=== PATIENT | male | born 1960 | race African-American/Black ===

== ENCOUNTER 2017-11-22 13:42 | Inpatient (IN) | payer OTHER ==
[2017-11-22 15:08] VITALS: BMI 21.9
--- NOTE | 2017-11-22 15:23 | HP ---
CIWA Score - CIWA Score Nausea/Vomitin-Mild Nausea/No Vomiting Muscle Tremors: 4-Moderate,w/Arms Extend Anxiety: 4-Mod. Anxious/Guarded Agitation: 4-Moderately Restless Paroxysmal Sweats: 1-Minimal Palms Moist Orientation: 1-Uncertain about Date Tacttile Disturbances: 1-Very Mild Itch/Numbness Auditory Disturbances: 0-None Visual Disturbances: 0-None Headache: 2-Mild CIWA-Ar Total Score: 18 Admission ROS S - HPI Chief Complaint: withdrawal sx Allergies/Adverse Reactions: Allergies Allergy/AdvReac Type Severity Reaction Status Date / Time No Known Allergies Allergy Verified 11/22/17 15:13 History of Present Illness: 57 years old male with long history of alcohol nicotine dependence has positive ppd hypertension prostate ca x 2 years is admitted to detox has depression Exam Limitations: No Limitations - Ebola screening Have you traveled outside of the country in the last 21 days: No (N) Have you had contact with anyone from an Ebola affected area: No Have you been sick,other than usual withdrawal symptoms: No Do you have a fever: No - Review of Systems Constitutional: Loss of Appetite, Changes in sleep, Unintentional Wgt. Loss, Unexplained wgt Loss EENT: reports: Blurred Vision (eye glasses), Hearing Loss (both ears x "years") Respiratory: reports: Productive cough (brownish) Cardiac: reports: No Symptoms Reported GI: reports: Nausea, Poor Appetite, Poor Fluid Intake, Abdominal cramping : reports: Other (prostate ca) Musculoskeletal: reports: Muscle Weakness (both legs) Integumentary: reports: No Symptoms Reported Neuro: reports: Seizure (2016 head trauma), Tremors Endocrine: reports: No Symptoms Reported Hematology: reports: No Symptoms Reported Psychiatric: reports: Judgement Intact, Orientated x3, Anxious, Depressed Other Systems: Reviewed and Negative Patient History - Patient Medical History Hx Anemia: No Hx Asthma: No Hx Chronic Obstructive Pulmonary Disease (COPD): No Hx Cancer: No Hx Cardiac Disorders: No Hx Congestive Heart Failure: No Hx Hypertension: Yes Hx Hypercholesterolemia: No Hx Pacemaker: No HX Cerebrovascular Accident: No Hx Seizures: Yes Hx Dementia: No Hx Diabetes: No Hx Gastrointestinal Disorders: No Hx Liver Disease: No Hx Genitourinary Disorders: No Hx Sexually Transmitted Disorders: No Hx Renal Disease (ESRD): No Hx Thyroid Disease: No Hx Human Immunodeficiency Virus (HIV): No Hx Hepatitis C: No Hx Depression: Yes Hx Suicide Attempt: No Hx Bipolar Disorder: No Hx Schizophrenia: No - Patient Surgical History Past Surgical History: Yes Hx Genitourinary Surgery: Yes (prostate removed 2015) Hx Orthopedic Surgery: Yes (shoulders 2015) Anesthesia Reaction: No - PPD History Previous Implant?: Yes Documented Results: Positive w/proof Implanted On Prior R Admission?: No PPD to be Administered?: No - Smoking Cessation Smoking history: Current every day smoker Have you smoked in the past 12 months: Yes Aproximately how many cigarettes per day: 10 Cigars Per Day: 0 Hx Chewing Tobacco Use: No Initiated information on smoking cessation: Yes 'Breaking Loose' booklet given: 11/22/17 - Substance & Tx. History Hx Alcohol Use: Yes Hx Substance Use: No Substance Use Type: Alcohol Hx Substance Use Treatment: Yes () - Substances Abused Alcohol Route: Oral Frequency: Daily Amount used: pint vodka Age of first use: 16 Date of Last Use: 11/22/17 Family Disease History - Family Disease History Family Disease History: CA: Brother (), Respiratory: Mother (), Other: Father (), Mother, Brother, Sister (no contact) Admission Physical Exam BHS - Vital Signs Vital Signs: Vital Signs - 24 hr 11/22/17 15:00 Temperature 96.6 F L Pulse Rate 77 Respiratory 20 Rate Blood Pressure 141/97 - Physical General Appearance: Yes: Appropriately Dressed, Mild Distress, Alcohol on Breath , Thin, Tremorous, Irritable, Sweating, Anxious HEENTM: Yes: Hearing grossly Normal, Normal ENT Inspection, Normocephalic, Normal Voice Respiratory: Yes: Chest Non-Tender, Lungs Clear, Normal Breath Sounds, No Respiratory Distress, No Accessory Muscle Use Neck: Yes: Supple, Trachea in good position Breast: Yes: Breasts Symetrical Cardiology: Yes: Regular Rhythm, Regular Rate, S1, S2 Abdominal: Yes: Normal Bowel Sounds, Non Tender, Flat Genitourinary: Yes: Within Normal Limits Back: Yes: Normal Inspection Musculoskeletal: Yes: Gait Steady (cane), Muscle weakness (both legs) Extremities: Yes: Normal Inspection, Non-Tender, Tremors Neurological: Yes: Alert, Normal Response, Depressed Affect (tearful) Integumentary: Yes: Warm Lymphatic: Yes: Within Normal Limits - Diagnostic (1) Alcohol dependence with uncomplicated withdrawal Current Visit: Yes Status: Acute (2) Positive PPD, treated Current Visit: Yes Status: Resolved (3) Nicotine dependence Current Visit: Yes Status: Acute Qualifiers: Nicotine product type: cigarettes Substance use status: in withdrawal Qualified Code(s): F17.213 - Nicotine dependence, cigarettes, with withdrawal (4) Prostate CA Current Visit: Yes Status: Inactive Comment: diagnosed 2016 surgically removed follow up with oncologist Cleared for Admission [facility] - Detox or Rehab [facility] Level of Care: Medically Managed Detox Regimen/Protocol: Librium [facility] Breath Alcohol Content Breath Alcohol Content: 0.218 Urine Drug Screen - Results Drug Screen Negative: Yes
[2017-11-22] MEDS ORDERED: NICOTINE POLACRILEX 2 MG GUM BC PRN (15:32)
[2017-11-22] MEDS ORDERED: MAGNESIUM HYDROX 2400MG/30ML ORAL SUSPENSION 30 ML CUP PO PRN (15:32)
[2017-11-22] MEDS ORDERED: MAG HYDROX/AL HYDROX/SIMETH 30 ML UNIT-DOSE CUP PO PRN (15:32)
[2017-11-22] MEDS ORDERED: IBUPROFEN 400 MG TABLET (FP) PO PRN (15:32)
[2017-11-22] MEDS ORDERED: ACETAMINOPHEN 325 MG TABLET (FP) PO PRN (15:32)
[2017-11-22] MEDS ORDERED: MAGNESIUM CITRATE 300 ML BOTTLE PO PRN (15:32)
[2017-11-22] MEDS ORDERED: guaiFENesin/D-METHORPHAN HB 10 ML UNIT-DOSE CUPS PO PRN (15:32)
[2017-11-22] MEDS ORDERED: P-EPHED 60MG/TRIPROLIDI 2.5MG TABLET PO PRN (15:32)
[2017-11-22] MEDS ORDERED: MENTHOL/PHENOL 1 EACH UD MM PRN (15:32)
[2017-11-22] MEDS ORDERED: LOPERAMIDE HCL 2 MG CAPSULE PO PRN (15:32)
[2017-11-22] MEDS: chlordiazePOXIDE HCL 25 MG CAPSULE PO PRN (18:22)
[2017-11-22] MEDS: THIAMINE HCL 100 MG TABLET (FP) PO SCH (22:11)
[2017-11-22] MEDS: chlordiazePOXIDE HCL 25 MG CAPSULE PO SCH (22:11)
[2017-11-22 23:09] LABS: URINE APPEARANCE TURBID; URINE BILIRUBIN NEGATIVE (NEGATIVE); URINE BLOOD NEGATIVE (NEGATIVE); URINE COLOR AMBER; URINE GLUCOSE (UA) NEGATIVE (NEGATIVE); URINE KETONE TRACE (NEGATIVE); URINE LEUK ESTERASE NEGATIVE (NEGATIVE); URINE NITRITE NEGATIVE (NEGATIVE); URINE UROBILINOGEN 4.0 E.U/dl mg/dL (0.2-1.0)
[2017-11-22 23:15] LABS: URINE PROTEIN 1+ (NEGATIVE)
[2017-11-22 23:24] LABS: URINE BACTERIA RARE /hpf (NONE SEEN); URINE MUCUS MANY
[2017-11-23] MEDS: chlordiazePOXIDE HCL 25 MG CAPSULE PO SCH ×4 (05:40→22:23)
[2017-11-23] MEDS: chlordiazePOXIDE HCL 25 MG CAPSULE PO PRN (08:47)
--- NOTE | 2017-11-23 09:53 | EKG ---
Test Reason : Blood Pressure : / mmHG Vent. Rate : 093 BPM Atrial Rate : 093 BPM P-R Int : 140 ms QRS Dur : 084 ms QT Int : 348 ms P-R-T Axes : 069 075 075 degrees QTc Int : 432 ms NORMAL SINUS RHYTHM NORMAL ECG NO PREVIOUS ECGS AVAILABLE Confirmed by BRETT OROSCO MD ([id number]) on 11/23/2017 9:53:28 AM Referred By: Confirmed By:BRETT OROSCO MD
[2017-11-23] MEDS: PRENATAL VITAMINS W/ FOLIC ACID TABLET (FP) PO SCH (10:26)
[2017-11-23] MEDS: NICOTINE 14 MG/24 HOURS TOPICAL PATCH TD SCH (10:28)
--- NOTE | 2017-11-23 10:36 | CONSULT ---
[facility] Psychiatric Consult - Data Date of interview: 11/23/17 Admission source: [facility] Identifying data: Pt is a 57 year old male, father of seven, unemployed, and currently waiting to be approved for disbility.This is patient's first admission to [facility]. Pt. admitted to for alcohol dependence. Substance Abuse History: Following information confirmed with Mr. Marlow: Smoking Cessation. Smoking history: Current every day smoker. Have you smoked in the past 12 months: Yes. Aproximately how many cigarettes per day: 10. Cigars Per Day: 0. Hx Chewing Tobacco Use: No. Initiated information on smoking cessation: Yes. 'Breaking Loose' booklet given: 11/22/17. - Substance & Tx. History. Hx Alcohol Use: Yes. Hx Substance Use: No. Substance Use Type : Alcohol. Hx Substance Use Treatment: Yes (). - Substances Abused. Alcohol. Route: Oral. Frequency: Daily. Amount used: pint vodka. Age of first use: 16. Date of Last Use: 11/22/17 Medical History: Hypertension, seizures. Psychiatric History: Pt. denies h/o psychiatric hospitalizations, OPC, and suicide attempts. Pt. reports anxiety and depression within the last year. Pt. not interested in accepting medications. Pt. reports h/o one incomplete suicide attempt. States at the age of 11 he took a knife with the thought of stabbing himself but stated to proposal manager writer, " I could not do it." Pt. currently denies suicidal and homicidal ideation. Physical/Sexual Abuse/Trauma History: Denies. Mental Status Exam - Mental Status Exam Alert and Oriented to: Time, Place, Person Cognitive Function: Fair Patient Appearance: Well Groomed Mood: Euthymic Affect: Mood Congruent Patient Behavior: Cooperative Speech Pattern: Appropriate Voice Loudness: Normal Thought Process: Goal Oriented Thought Disorder: Not Present Hallucinations: Denies Suicidal Ideation: Denies Homicidal Ideation: Denies Insight/Judgement: Poor Sleep: Fair Appetite: Good Muscle strength/Tone: Mild Hypertonicity Gait/Station: Other (Pt. ambulates with a cane.) Psychiatric Findings - Problem List ([place] 1, 2,3) (1) Alcohol dependence with uncomplicated withdrawal Current Visit: Yes Status: Acute (2) Nicotine dependence Current Visit: Yes Status: Chronic Qualifiers: Nicotine product type: cigarettes Substance use status: in withdrawal Qualified Code(s): F17.213 - Nicotine dependence, cigarettes, with withdrawal (3) Substance induced mood disorder Current Visit: No Status: Suspected - Initial Treatment Plan Initial Treatment Plan: Psychoeducation provided. Detoxification in progress. Observation.
--- NOTE | 2017-11-23 10:44 | CONSULT ---
[facility] Psychiatric Consult - Data Date of interview: 11/23/17 Admission source: [facility] Psychiatric Findings - Problem List ([place] 1, 2,3) (1) Alcohol dependence with uncomplicated withdrawal Current Visit: Yes Status: Acute (2) Nicotine dependence Current Visit: Yes Status: Chronic Qualifiers: Nicotine product type: cigarettes Substance use status: in withdrawal Qualified Code(s): F17.213 - Nicotine dependence, cigarettes, with withdrawal (3) Substance induced mood disorder Current Visit: No Status: Suspected
--- NOTE | 2017-11-23 11:54 | PN ---
[facility] CIWA - CIWA Score Nausea/Vomitin-No Nausea/No Vomiting Muscle Tremors: 4-Moderate,w/Arms Extend Anxiety: 4-Mod. Anxious/Guarded Agitation: 3 Paroxysmal Sweats: 3 Orientation: 0-Oriented Tacttile Disturbances: 0-None Auditory Disturbances: 0-None Visual Disturbances: 0-None Headache: 0-None Present CIWA-Ar Total Score: 14 S Progress Note (SOAP) Subjective: Anxiety,tremors,sweating,interrupted sleep,restless Objective: 11/23/17 11:52 Vital Signs - 8 hr 11/23/17 11/23/17 11/23/17 06:30 07:37 09:36 Temperature 97.9 F 98.8 F Pulse Rate 71 71 73 Respiratory 19 20 Rate Blood Pressure 146/82 155/98 Laboratory Tests 11/22/17 18:55 Urine Color Lou Urine Appearance Turbid Urine pH 5.0 Ur Specific [place] 1.025 Urine Protein 1+ H Urine Glucose (UA) Negative Urine Ketones Trace H Urine Blood Negative Urine Nitrite Negative Urine Bilirubin Negative Urine Urobilinogen 4.0 e.u/dl Ur Leukocyte Esterase Negative Urine WBC (Auto) 6 Urine RBC (Auto) None Urine Bacteria Rare Urine Mucus Many labs noted Assessment: 11/23/17 11:53 Withdrawal sx. Plan: Continue detox
[2017-11-23 12:07] LABS: HEMATOCRIT 46.5 % (35.4-49); HEMOGLOBIN 14.9 GM/dL (11.7-16.9); MCH 32.3 pg (25.7-33.7); MCHC 32.1 g/dl (32.0-35.9); MEAN CELL VOLUME 100.4 fl (80-96); MEAN PLT VOLUME 8.3 fl (7.5-11.1); PLATELET COUNT 291 K/MM3 (134-434); RBC 4.63 M/mm3 (4.00-5.60); WHITE BLOOD COUNT 5.4 K/mm3 (4.0-10.0)
[2017-11-23 12:11] LABS: ALBUMIN 4.1 g/dl (3.4-5.0); ALK PHOS 82 U/L (45-117); ANION GAP 11 (8-16); BILIRUBIN,TOTAL 0.3 mg/dL (0.2-1.0); BLOOD UREA NITROGEN 10 mg/dL (7-18); CALCIUM 9.1 mg/dL (8.5-10.1); CHLORIDE 103 mmol/L (98-107); CO2 27 mmol/L (21-32); GLUCOSE,RANDOM 143 mg/dL (74-106); POTASSIUM 4.2 mmol/L (3.5-5.1); SGOT/AST 67 U/L (15-37); SGPT/ALT 50 U/L (12-78); SODIUM 141 mmol/L (136-145); TOT PROT 7.1 g/dl (6.4-8.2)
[2017-11-23] MEDS: THIAMINE HCL 100 MG TABLET (FP) PO SCH (22:23)
[2017-11-24] MEDS: chlordiazePOXIDE HCL 25 MG CAPSULE PO SCH ×3 (05:51→17:11)
--- NOTE | 2017-11-24 10:16 | PN ---
S CIWA - CIWA Score Nausea/Vomitin-Mild Nausea/No Vomiting Muscle Tremors: 4-Moderate,w/Arms Extend Anxiety: 3 Agitation: 4-Moderately Restless Paroxysmal Sweats: 3 Orientation: 0-Oriented Tacttile Disturbances: 0-None Auditory Disturbances: 0-None Visual Disturbances: 0-None Headache: 0-None Present CIWA-Ar Total Score: 15 BHS Progress Note (SOAP) Subjective: Tremors,sweating,interrupted sleep,anxiety,restless. Objective: 11/24/17 10:15 Vital Signs - 8 hr 11/24/17 11/24/17 03:30 06:00 Temperature 97.7 F Pulse Rate 59 L Respiratory 17 18 Rate Blood Pressure 126/80 Laboratory Tests 11/22/17 11/23/17 11/23/17 18:55 05:45 05:45 WBC 5.4 RBC 4.63 Hgb 14.9 Hct 46.5 MCV 100.4 H MCH 32.3 MCHC 32.1 RDW 15.0 Plt Count 291 MPV 8.3 Sodium 141 Potassium 4.2 Chloride 103 Carbon Dioxide 27 Anion Gap 11 BUN 10 Creatinine 1.0 Creat Clearance w eGFR > 60 Random Glucose 143 H Calcium 9.1 Total Bilirubin 0.3 AST 67 H ALT 50 Alkaline Phosphatase 82 Total Protein 7.1 Albumin 4.1 Urine Color Lou Urine Appearance Turbid Urine pH 5.0 Ur Specific [place] 1.025 Urine Protein 1+ H Urine Glucose (UA) Negative Urine Ketones Trace H Urine Blood Negative Urine Nitrite Negative Urine Bilirubin Negative Urine Urobilinogen 4.0 e.u/dl Ur Leukocyte Esterase Negative Urine WBC (Auto) 6 Urine RBC (Auto) None Urine Bacteria Rare Urine Mucus Many RPR Titer 11/23/17 05:45 WBC RBC Hgb Hct MCV MCH MCHC RDW Plt Count MPV Sodium Potassium Chloride Carbon Dioxide Anion Gap BUN Creatinine Creat Clearance w eGFR Random Glucose Calcium Total Bilirubin AST ALT Alkaline Phosphatase Total Protein Albumin Urine Color Urine Appearance Urine pH Ur Specific [place] Urine Protein Urine Glucose (UA) Urine Ketones Urine Blood Urine Nitrite Urine Bilirubin Urine Urobilinogen Ur Leukocyte Esterase Urine WBC (Auto) Urine RBC (Auto) Urine Bacteria Urine Mucus RPR Titer Nonreactive labs noted Assessment: 11/24/17 10:15 Withdrawal sx. Plan: Continue detox
[2017-11-24] MEDS: NICOTINE 14 MG/24 HOURS TOPICAL PATCH TD SCH (10:27)
[2017-11-24] MEDS: PRENATAL VITAMINS W/ FOLIC ACID TABLET (FP) PO SCH (10:27)
[2017-11-24] MEDS ORDERED: chlordiazePOXIDE HCL 25 MG CAPSULE PO ONE (14:00)
[2017-11-24] MEDS: chlordiazePOXIDE 5 MG CAPSULE PO SCH (22:05)
[2017-11-24] MEDS: THIAMINE HCL 100 MG TABLET (FP) PO SCH (22:05)
[2017-11-25] MEDS: chlordiazePOXIDE 5 MG CAPSULE PO SCH ×3 (05:20→17:02)
[2017-11-25] MEDS: PRENATAL VITAMINS W/ FOLIC ACID TABLET (FP) PO SCH (10:36)
[2017-11-25] MEDS: NICOTINE 14 MG/24 HOURS TOPICAL PATCH TD SCH (10:36)
--- NOTE | 2017-11-25 13:16 | PN ---
BHS Progress Note (SOAP) Subjective: anxiety tremor sweat Objective: 11/25/17 13:15 Vital Signs Temperature 97.3 F L 11/25/17 10:00 Pulse Rate 94 H 11/25/17 10:00 Respiratory Rate 18 11/25/17 10:00 Blood Pressure 126/82 11/25/17 10:00 O2 Sat by Pulse Oximetry (%) Laboratory Last Values WBC 5.4 K/mm3 (4.0-10.0) 11/23/17 05:45 RBC 4.63 M/mm3 (4.00-5.60) 11/23/17 05:45 Hgb 14.9 GM/dL (11.7-16.9) 11/23/17 05:45 Hct 46.5 % (35.4-49) 11/23/17 05:45 MCV 100.4 fl (80-96) H 11/23/17 05:45 MCH 32.3 pg (25.7-33.7) 11/23/17 05:45 MCHC 32.1 g/dl (32.0-35.9) 11/23/17 05:45 RDW 15.0 % (11.9-15.9) 11/23/17 05:45 Plt Count 291 K/MM3 (134-434) 11/23/17 05:45 MPV 8.3 fl (7.5-11.1) 11/23/17 05:45 Sodium 141 mmol/L (136-145) 11/23/17 05:45 Potassium 4.2 mmol/L (3.5-5.1) 11/23/17 05:45 Chloride 103 mmol/L (98-107) 11/23/17 05:45 Carbon Dioxide 27 mmol/L (21-32) 11/23/17 05:45 Anion Gap 11 (8-16) 11/23/17 05:45 BUN 10 mg/dL (7-18) 11/23/17 05:45 Creatinine 1.0 mg/dL (0.7-1.3) 11/23/17 05:45 Creat Clearance w eGFR > 60 (>60) 11/23/17 05:45 Random Glucose 143 mg/dL (74-106) H 11/23/17 05:45 Calcium 9.1 mg/dL (8.5-10.1) 11/23/17 05:45 Total Bilirubin 0.3 mg/dL (0.2-1.0) 11/23/17 05:45 AST 67 U/L (15-37) H 11/23/17 05:45 ALT 50 U/L (12-78) 11/23/17 05:45 Alkaline Phosphatase 82 U/L (45-117) 11/23/17 05:45 Total Protein 7.1 g/dl (6.4-8.2) 11/23/17 05:45 Albumin 4.1 g/dl (3.4-5.0) 11/23/17 05:45 Urine Color Lou 11/22/17 18:55 Urine Appearance Turbid 11/22/17 18:55 Urine pH 5.0 (5.0-8.0) 11/22/17 18:55 Ur Specific [place] 1.025 (1.001-1.035) 11/22/17 18:55 Urine Protein 1+ (NEGATIVE) H 11/22/17 18:55 Urine Glucose (UA) Negative (NEGATIVE) 11/22/17 18:55 Urine Ketones Trace (NEGATIVE) H 11/22/17 18:55 Urine Blood Negative (NEGATIVE) 11/22/17 18:55 Urine Nitrite Negative (NEGATIVE) 11/22/17 18:55 Urine Bilirubin Negative (NEGATIVE) 11/22/17 18:55 Urine Urobilinogen 4.0 e.u/dl mg/dL (0.2-1.0) 11/22/17 18:55 Ur Leukocyte Esterase Negative (NEGATIVE) 11/22/17 18:55 Urine WBC (Auto) 6 /hpf (3-5) 11/22/17 18:55 Urine RBC (Auto) None /hpf (0-3) 11/22/17 18:55 Urine Bacteria Rare /hpf (NONE SEEN) 11/22/17 18:55 Urine Mucus Many 11/22/17 18:55 RPR Titer Nonreactive (NONREACTIVE) 11/23/17 05:45 lab noted Assessment: 11/25/17 13:15 withdrawal sx Plan: continue detox
[2017-11-25] MEDS: THIAMINE HCL 100 MG TABLET (FP) PO SCH (22:23)
[2017-11-25] MEDS: chlordiazePOXIDE HCL 10 MG CAPSULE PO SCH (22:23)
[2017-11-26] MEDS: chlordiazePOXIDE HCL 10 MG CAPSULE PO SCH (05:16)
[2017-11-26 06:17] VITALS: TEMP 97.7
--- NOTE | 2017-11-26 09:16 | DS ---
[facility] Detox Discharge Summary Admission Date: 11/22/17 Discharge Date: 11/26/17 - History Present History: Alcohol Dependence - Physical Exam Results Vital Signs: Vital Signs Temperature 97.7 F 11/26/17 06:16 Pulse Rate 54 L 11/26/17 06:16 Respiratory Rate 16 11/26/17 06:16 Blood Pressure 115/68 11/26/17 06:16 O2 Sat by Pulse Oximetry (%) Pertinent Admission Physical Exam Findings: withdrawal sx Vital Signs Temperature 97.7 F 11/26/17 06:16 Pulse Rate 54 L 11/26/17 06:16 Respiratory Rate 16 11/26/17 06:16 Blood Pressure 115/68 11/26/17 06:16 O2 Sat by Pulse Oximetry (%) Laboratory Last Values WBC 5.4 K/mm3 (4.0-10.0) 11/23/17 05:45 RBC 4.63 M/mm3 (4.00-5.60) 11/23/17 05:45 Hgb 14.9 GM/dL (11.7-16.9) 11/23/17 05:45 Hct 46.5 % (35.4-49) 11/23/17 05:45 MCV 100.4 fl (80-96) H 11/23/17 05:45 MCH 32.3 pg (25.7-33.7) 11/23/17 05:45 MCHC 32.1 g/dl (32.0-35.9) 11/23/17 05:45 RDW 15.0 % (11.9-15.9) 11/23/17 05:45 Plt Count 291 K/MM3 (134-434) 11/23/17 05:45 MPV 8.3 fl (7.5-11.1) 11/23/17 05:45 Sodium 141 mmol/L (136-145) 11/23/17 05:45 Potassium 4.2 mmol/L (3.5-5.1) 11/23/17 05:45 Chloride 103 mmol/L (98-107) 11/23/17 05:45 Carbon Dioxide 27 mmol/L (21-32) 11/23/17 05:45 Anion Gap 11 (8-16) 11/23/17 05:45 BUN 10 mg/dL (7-18) 11/23/17 05:45 Creatinine 1.0 mg/dL (0.7-1.3) 11/23/17 05:45 Creat Clearance w eGFR > 60 (>60) 11/23/17 05:45 Random Glucose 143 mg/dL (74-106) H 11/23/17 05:45 Calcium 9.1 mg/dL (8.5-10.1) 11/23/17 05:45 Total Bilirubin 0.3 mg/dL (0.2-1.0) 11/23/17 05:45 AST 67 U/L (15-37) H 11/23/17 05:45 ALT 50 U/L (12-78) 11/23/17 05:45 Alkaline Phosphatase 82 U/L (45-117) 11/23/17 05:45 Total Protein 7.1 g/dl (6.4-8.2) 11/23/17 05:45 Albumin 4.1 g/dl (3.4-5.0) 11/23/17 05:45 Urine Color Lou 11/22/17 18:55 Urine Appearance Turbid 11/22/17 18:55 Urine pH 5.0 (5.0-8.0) 11/22/17 18:55 Ur Specific [place] 1.025 (1.001-1.035) 11/22/17 18:55 Urine Protein 1+ (NEGATIVE) H 11/22/17 18:55 Urine Glucose (UA) Negative (NEGATIVE) 11/22/17 18:55 Urine Ketones Trace (NEGATIVE) H 11/22/17 18:55 Urine Blood Negative (NEGATIVE) 11/22/17 18:55 Urine Nitrite Negative (NEGATIVE) 11/22/17 18:55 Urine Bilirubin Negative (NEGATIVE) 11/22/17 18:55 Urine Urobilinogen 4.0 e.u/dl mg/dL (0.2-1.0) 11/22/17 18:55 Ur Leukocyte Esterase Negative (NEGATIVE) 11/22/17 18:55 Urine WBC (Auto) 6 /hpf (3-5) 11/22/17 18:55 Urine RBC (Auto) None /hpf (0-3) 11/22/17 18:55 Urine Bacteria Rare /hpf (NONE SEEN) 11/22/17 18:55 Urine Mucus Many 11/22/17 18:55 RPR Titer Nonreactive (NONREACTIVE) 11/23/17 05:45 lab noted - Treatment Hospital Course: Detox Protocol Followed, Detoxed Safely, Responded well, Discharged Condition Good, Rehab Referral Accepted Patient has Accepted a Rehab Referral to: as per counselor arranged - Medication Discharge Medications: Ambulatory Orders NK [No Known Home Medication] 11/22/17 - Diagnosis (1) Alcohol dependence with uncomplicated withdrawal Current Visit: Yes Status: Acute (2) Positive PPD, treated Current Visit: Yes Status: Resolved (3) Nicotine dependence Current Visit: Yes Status: Acute Qualifiers: Nicotine product type: cigarettes Substance use status: in withdrawal Qualified Code(s): F17.213 - Nicotine dependence, cigarettes, with withdrawal (4) Prostate CA Current Visit: Yes Status: Inactive - AMA Did Patient Leave Against Medical Advice: No
[2017-11-26 10:58] VITALS: BP 134/80; PULSE 92
== END 2017-11-26 09:49 | disposition home or self-care (01) | DRG 775 ==
LOC: YASAS 13:42 → Y6N 16:30
PROVIDERS: ADMIT Internal Medicine; ATTEND Internal Medicine
PROC: HZ2ZZZZ Detoxification Services for Substance Abuse Treatment (ICD-10-PCS; principal; 2017-11-22)
DX: F10.230 Alcohol dependence with withdrawal, uncomplicated (principal); F17.213 Nicotine dependence, cigarettes, with withdrawal; F19.24 Other psychoactive substance dependence with psychoactive substance-induced mood disorder; I10 Essential (primary) hypertension; Z85.46 Personal history of malignant neoplasm of prostate; R76.11 Nonspecific reaction to tuberculin skin test without active tuberculosis; Z86.69 Personal history of other diseases of the nervous system and sense organs; Z90.79 Acquired absence of other genital organ(s)
CPT/HCPCS: 36415; 71046-TC; 80053; 81003; 81015; 85027; 86593; 93005; 93010